=== PATIENT | male | born 1990 | race Caucasian/White ===

== ENCOUNTER 2017-04-28 13:24 | Outpatient (CLI) | payer OTHER ==
[~2017-04-28 13:24] MED LIST: ATENOLOL25 MG; ATENOLOL25 MG PO; AVAPRO150 MG; FIORICET 50-321 EACH PO; IRBESARTAN75 MG; LISINOPRIL30 MG; PANTOPRAZOLE SO40 MG; PRILOSEC40 MG; TUSSI PRES-B L120 M1 PO; ZITHROMAX TRI-500 MG PO
== END 2017-04-28 13:37 | disposition home or self-care (01) ==
LOC: RAD 501 13:24
DX: M25.572 Pain in left ankle and joints of left foot (principal)

== ENCOUNTER → 2017-05-20 | Emergency (ER) | payer OTHER ==
[~2017-05-20] VITALS: Ht 177.8 cm; Wt 88.5 kg
[~2017-05-20] MED LIST changes: +LEVSIN/SL0.125 MG SL; +ZANTAC300 MG PO
== END | disposition home or self-care (01) ==
LOC: ER 02:19
DX: R10.13 Epigastric pain (principal)

== ENCOUNTER 2017-05-21 09:19 | Outpatient (CLI) | payer OTHER | END 2017-05-21 09:27 | disposition home or self-care (01) | LOC: SONOGRAMA 09:19 | DX: I10 Essential (primary) hypertension (principal); I12.9 Hypertensive chronic kidney disease with stage 1 through stage 4 chronic kidney disease, or unspecified chronic kidney disease ==

== ENCOUNTER 2018-07-31 20:09 | Emergency (ER) | payer OTHER ==
[~2018-07-31] VITALS: Ht 177.8 cm; Wt 88.5 kg
[2018-07-31] MEDS ORDERED: AMLODIPINE BESY10 MG (20:34)
[2018-07-31] MEDS ORDERED: LISINOPRIL20 MG (20:34)
[2018-07-31] MEDS ORDERED: CHLORTHALIDONE25 MG (20:34)
[2018-07-31] MEDS ORDERED: NEXIUM 24HR20 MG (20:35)
== END 2018-07-31 22:51 | disposition home or self-care (01) ==
LOC: ER 20:09
DX: N50.812 Left testicular pain (principal); M25.532 Pain in left wrist

== ENCOUNTER 2019-01-14 19:16 | Emergency (ER) | payer OTHER ==
[~2019-01-14] VITALS: Ht 175.3 cm; Wt 88.5 kg
[~2019-01-14 19:16] MED LIST changes: +AMLODIPINE BESY10 MG; +CHLORTHALIDONE25 MG; +LISINOPRIL20 MG; +NEXIUM 24HR20 MG
== END 2019-01-14 22:03 | disposition home or self-care (01) ==
LOC: ER 19:16
DX: S50.11XA Contusion of right forearm, initial encounter (principal); W22.8XXA Striking against or struck by other objects, initial encounter; Y93.89 Activity, other specified; Y92.89 Other specified places as the place of occurrence of the external cause; Y99.8 Other external cause status

== ENCOUNTER 2023-05-31 18:22 | Emergency (ER) | payer OTHER ==
[~2023-05-31] VITALS: Ht 177.8 cm; Wt 83.9 kg
[2023-05-31] MEDS ORDERED: 0.9 % SODIUM CHLORIDE 1,000 ML IV STA (20:27)
[2023-05-31] MEDS ORDERED: FAMOTIDINE/PF 20 MG/2 ML VIAL IV STA (20:28)
[2023-05-31] MEDS ORDERED: ONDANSETRON HCL 2 MG/ML VIAL IV ONE (20:30)
[2023-05-31 21:10] LABS: PH,URINE 7.5 (5.0-8.0); URINE APPEARANCE Clear; URINE BILIRRUBIN Negative (NEGATIVE); URINE BLOOD Negative; URINE COLOR Yellow; URINE GLUCOSE Negative (NEGATIVE); URINE LEUKOCYTE Negative; URINE NITRATE Negative; URINE PROTEIN Negative (NEGATIVE); URINE UROBILINOGEN 0.2 E.U./dl
[2023-05-31 21:11] LABS: HEMATOCRIT 40.2 % (39.0-48.0); HEMOGLOBIN 14.3 g/dL (13-16.00); MEAN CELL VOLUME 81.2 fL (80.0-100.00); MEAN CORPUSCULAR HGB CONC 35.7 g/dl (32.0-36.0); PLATELET COUNT 165 K/uL (150-450); RED BLOOD COUNT 4.95 M/uL (4.00-6.00); RED CELL DISTRIBUTION WIDTH 13.6 % (11.5-14.5)
[2023-05-31 21:16] LABS: URINE RBC 2.1 uL (0.0-20.8)
[2023-05-31 21:19] LABS: URINE BACTERIA 2.5 uL (0.0-1933); URINE EPITHELIAL CELLS 0.2 uL (0.0-38.8)
[2023-05-31 21:23] LABS: ALBUMIN 3.9 gm/dL (3.4-5.0); BILIRUBIN TOTAL 0.67 mg/dL (0.3-1.2); CALCIUM 9.2 mg/dL (8.5-10.1); CREATININE SERUM 0.93 mg/dL (0.70-1.30); GFR 93.57; GLOBULINA 3.9 G/DL (2.4-3.5); POTASSIUM 3.02 mEq/L (3.5-5.1); TOTAL PROTEIN 7.8 gm/dL (6.4-8.2)
[2023-06-01] MEDS ORDERED: KETO10TA2 PO (04:20)
[2023-06-01] MEDS ORDERED: CIPRO500 MG PO (04:20)
== END 2023-06-01 04:25 ==
LOC: ER 18:22
PROVIDERS: General Practice
DX: N30.90 Cystitis, unspecified without hematuria (principal); R10.31 Right lower quadrant pain; Z88.8 Allergy status to other drugs, medicaments and biological substances; I10 Essential (primary) hypertension; I88.0 Nonspecific mesenteric lymphadenitis; N20.0 Calculus of kidney
CPT/HCPCS: 36415; 74177; 96365; 96366; 99284; J2405; J3490; J7030; Q9965